=== PATIENT | female | born 2000 | race Caucasian/White ===

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

== ENCOUNTER 2019-09-25 12:33 | Outpatient (REF) | payer BC, SELFPAY ==
[2019-09-27 10:50] LABS: Hepatitis C Ab w Rflx HCV PCR Negative (Negative)
[2019-09-27 11:05] LABS: HIV-1/2 Ag & Ab Screen Negative (Negative)
[2019-09-27 11:56] LABS: Syphilis Serology (RPR) Negative (Negative)
[2019-09-27 15:18] LABS: Chlamydia Result Positive (Negative); GC Result Negative (Negative)
== END 2019-09-25 12:53 ==
LOC: NCHCN 12:33
PROVIDERS: PCP Family Medicine; Visit Provider Family Medicine
DX: Z20.2 Contact with and (suspected) exposure to infections with a predominantly sexual mode of transmission (principal); Z11.4 Encounter for screening for human immunodeficiency virus [HIV]; Z11.59 Encounter for screening for other viral diseases
CPT/HCPCS: 86803; 87389; 87491; 87591; 86592

== ENCOUNTER 2019-12-10 11:16 | Outpatient (REF) | payer BC, SELFPAY ==
[2019-12-12 15:23] LABS: Chlamydia Result Negative (Negative); GC Result Negative (Negative)
== END 2019-12-10 11:36 ==
LOC: NCHCN 11:16
PROVIDERS: PCP Family Medicine; Visit Provider Nurse Practitioner Community Health
DX: Z11.3 Encounter for screening for infections with a predominantly sexual mode of transmission (principal)
CPT/HCPCS: 87491; 87591

== ENCOUNTER 2019-12-17 11:57 | Outpatient (REF) | payer BC, SELFPAY | END 2019-12-17 12:17 | LOC: NCHCN 11:57 | PROVIDERS: PCP Family Medicine; Visit Provider Nurse Practitioner Community Health | DX: Z11.3 Encounter for screening for infections with a predominantly sexual mode of transmission (principal) | CPT/HCPCS: 87077; 87086; 87186 ==

== ENCOUNTER 2020-07-21 20:02 | Outpatient (REF) | payer BC, SELFPAY ==
[2020-07-23 18:05] LABS: Patient Race White; SARS-CoV-2 RNA Undetected (Undetected); SARS-CoV-2 Specimen Source Nasal
== END 2020-07-21 20:22 ==
LOC: NCHCN 20:02
PROVIDERS: PCP Family Medicine; Visit Provider Family Medicine
DX: Z20.828 Contact with and (suspected) exposure to other viral communicable diseases (principal)
CPT/HCPCS: U0003

== ENCOUNTER 2021-08-28 14:40 | Outpatient (REF) | payer BC, SELFPAY ==
--- NOTE | 2021-08-28 13:30 | PAPFT_PTH ---
PATIENT: Sherron Walker LOC: [facility] U#:[id number] AGE/SX: 20/F ROOM: RE08/28/[address]: Randal Barron : 2000 BED: DIS: 08/28/2021 SPEC #: [id number] RECD: 08/31/21 12:56 STATUS: IWONA RETal #: [id number] FER: 08/28/21 13:[address]: Randal Barron DEPT: [facility] Cytology RECD BY: Maricel Blas ENTERED: 08/31/21 12:56 SP TYPE: PAPFT OT DR: Leif Perez Tissues: 1 - CX/ENDOCX FOR PAP SMEARS Procedures: PAP THIN PREP/[facility] Screening Comments: [id number]
== END 2021-08-28 14:41 | disposition home or self-care (01) ==
LOC: NCHCN 14:40
PROVIDERS: PCP Family Medicine; Visit Provider Family Medicine
DX: Z12.4 Encounter for screening for malignant neoplasm of cervix (principal)
CPT/HCPCS: 88142

== ENCOUNTER 2021-10-07 16:11 | Outpatient (REF) | payer BC, SELFPAY ==
[2021-10-09 14:26] LABS: Chlamydia Result Negative (Negative); GC Result Negative (Negative)
== END 2021-10-07 16:12 | disposition home or self-care (01) ==
LOC: NCHCN 16:11
PROVIDERS: PCP Family Medicine; Visit Provider Family Medicine
DX: Z11.3 Encounter for screening for infections with a predominantly sexual mode of transmission (principal)
CPT/HCPCS: 87491; 87591